=== PATIENT | male | born 1980 | race African-American/Black ===

== ENCOUNTER 2021-07-27 17:25 | Emergency (ER) | payer SELFPAY ==
[2021-07-27] MEDS ORDERED: FOLIC ACID INJECTION - 1 MG, THIAMINE HCL 100 MG, MULTIVIT INJECTION ADULT 10 ML in SOD... IVPB ONE (18:05)
[2021-07-27 19:51] VITALS: BP 147/89; PULSE 106; TEMP 99; BMI 28.7
== END 2021-07-27 20:18 | disposition home or self-care (01) ==
LOC: JER 17:25
PROC: 3E033GC Introduction of Other Therapeutic Substance into Peripheral Vein, Percutaneous Approach (ICD-10-PCS; principal; 2021-07-27)
DX: F10.929 Alcohol use, unspecified with intoxication, unspecified (principal)
CPT/HCPCS: 99284-25

== ENCOUNTER 2023-08-09 04:32 | Emergency (ER) | payer SELFPAY ==
[2023-08-09 04:39] VITALS: BP 151/94; PULSE 90; RESP 18; TEMP 98.6; BMI 25.4
== END 2023-08-09 05:44 | disposition home or self-care (01) ==
LOC: JER 04:32
DX: F10.99 Alcohol use, unspecified with unspecified alcohol-induced disorder (principal); Z00.01 Encounter for general adult medical examination with abnormal findings
CPT/HCPCS: 99283-25